=== PATIENT | female | born 1940 ===

== ENCOUNTER 2025-02-23 03:03 | Outpatient (CLI) | payer OTHER, SELFPAY ==
--- NOTE | 2025-02-23 15:16 | PDOC.EEG_ITS ---
Neurology EEG EEG: [facility] Department of Neurology EEG REPORT Date of Recordin02/23/25 Interpreting Physician: Dr. Lisandra Genao PCP/Referring Provider: MERRILL Coughlin Reason for study: Erik Ch is an 84 year-old with spells of leg shaking concerning for seizure. Current Medications: Albuterol nebulizer PRN Apixaban 5 mg bid Aspirin 81 mg qd Bupropion 300 mg qd Cetrizine 5 mg qHS Cyanocobolamin 1000 mcg qd Donepezil? 5 mg qd Ergocalcif 1250 mcg Symbiocort bid Gabapentin? 300/600 QAM/QPM Metoprolol 25 mg qd Omeprazole 20 mg QAM Rosuvastatin 20 mg qd Spiriva QD Trazadone 50 mg qHS METHODS: A 21 channel digitized electroencephalogram was performed in the [facility]. The 10/20 international system of electrode placement was used and bipolar and referential electrode montages were recorded. In addition to EEG the patient was monitored for EKG and lateral/vertical eye movements. Activation procedures of photic stimulation and hyperventilation were performed if applicable. Video was used during activation procedures and during events where applicable. The duration of the recording was 30 minutes. DESCRIPTION OF EEG: The patient was noted to be awake and drowsy during the recording. During maximal wakefulness an 8-Hz posterior background rhythm was present which was well-modulated, symmetrical, reactive to eye opening, and of moderate voltage. With eye opening the background activity changed to a low voltage mixture of alpha, beta, and occasional theta range frequencies. Faster frequencies were present in the bilateral anterior head regions. There was a normal anterior- posterior voltage gradient. During drowsiness, there was attenuation of the posterior dominant background rhythm and vertex waves. No stage II sleep was recorded. The was subtle, generalized, polymorphic/non-rhythmic, moderate-amplitude theta slowing throughout the recording. Activating Procedures: Photic stimulation was performed which produced a symmetrical posterior driving response at various flash frequencies. Hyperventilation was not performed. EKG: EKG revealed a regular rhythm. INTERPRETATION: This EEG is abnormal due: #1. Slowing of the PDR. #2. Mild, non-rhythmic generalized theta slowing. PRIOR EEG: none CLINICAL CORRELATION: The above slowing is suggestive of a mild diffuse cerebral encephalopathy of broad differential including toxic-metabolic etiology. No focal regions of cerebral dysfunction or epileptiform activity was present. Clinical correlation is advised. Lisandra Genao MD Date of service: 02/23/25
== END 2025-02-23 03:04 | disposition home or self-care (01) ==
LOC: RT 03:03
PROVIDERS: Visit Provider Nurse Practitioner Adult Health
DX: R56.9 Unspecified convulsions (principal); R94.01 Abnormal electroencephalogram [EEG]
CPT/HCPCS: 95816